=== PATIENT | female | born 1985 | race American Indian/Alaskan Native ===

== ENCOUNTER 2018-07-20 22:41 | Inpatient (IN) | payer SELFPAY ==
[2018-07-20] MEDS ORDERED: LIDOCAINE VISCOUS 2% ONE (23:42)
[2018-07-20] MEDS ORDERED: ALUM-MAG HYDROX-SIMETH 200-200-20MG/5ML ONE (23:42)
[2018-07-20] MEDS ORDERED: ALUM-MAG HYDROX-SIMETH 200-200-20MG/5ML PO ONE (23:44)
[2018-07-20] MEDS ORDERED: LIDOCAINE VISCOUS 2% PO ONE (23:44)
[2018-07-20] MEDS ORDERED: ZOFRAN ODT PO ONE (23:45)
[2018-07-21 00:30] LABS: Basophils # (Auto) 0.1 K/mm3 (0.0-0.1); Basophils % (Auto) 0.7 % (0.0-1.8); Eosinophils % (Auto) 0.2 % (0.0-4.3); Hematocrit 39.3 % (30.3-42.9); Hemoglobin 12.9 gm/dl (10.1-14.3); Lymphocytes # (Auto) 2.9 K/mm3 (1.2-5.4); Lymphocytes % (Auto) 32.1 % (13.4-35.0); Mean Corpuscular HGB Conc 33 % (30-34); Mean Corpuscular Volume 81 fl (79-97); Monocytes # (Auto) 0.6 K/mm3 (0.0-0.8); Monocytes % (Auto) 6.8 % (0.0-7.3); Platelet Count 293 K/mm3 (140-440); Red Blood Count 4.83 M/mm3 (3.65-5.03); Red Cell Distribution Width 15.6 % (13.2-15.2)
[2018-07-21] MEDS ORDERED: NORMODYNE IV ONE (00:32)
[2018-07-21] MEDS ORDERED: MORPHINE IV ONE (00:33)
--- NOTE | 2018-07-21 00:37 | Emergency Department Report ---
ED Abdominal Pain HPI - General Chief Complaint: Dyspnea/Respdistress Stated Complaint: HBP HARD TO TAKE DEEP BREATH Time Seen by Provider: 07/21/18 00:27 Source: patient Mode of arrival: Ambulatory Limitations: No Limitations - History of Present Illness Initial Comments: Mrs. Jefferson is a very pleasant 33 yo female with hx of HTN and severe obesity who presents with epigastric pain sudden onset while working on computer. Radiates to left chest. Ate mild chicken wings for dinner. No hx of heartburn or similar pain. Pain worse with inspiration. Take HCTZ 25 mg daily Hx of tubal ligation, does not take OCPs Complaint: abdominal pain -: Sudden, minutes(s) (30) Location: epigastric Radiation: chest Severity: moderate, severe Severity scale (0 -10): 7 Quality: cramping, sharp Consistency: constant Worsens With: other (breathing) Context: other (occurred suddenly while working at computer) - Related Data Home Medications Medication Instructions Recorded Confirmed Last Taken hydroCHLOROthiazide [HCTZ] 25 mg PO QDAY 07/21/18 07/21/18 Unknown Allergies Allergy/AdvReac Type Severity Reaction Status Date / Time amoxicillin Allergy Hives Verified 07/20/18 22:44 ED Review of Systems ROS: Stated complaint: HBP HARD TO TAKE DEEP BREATH Other details as noted in HPI Comment: All other systems reviewed and negative Constitutional: denies: fever, malaise Respiratory: denies: cough Cardiovascular: chest pain Gastrointestinal: abdominal pain ED Past Medical Hx - Past Medical History Previous Medical History?: Yes Hx Hypertension: Yes - Surgical History Past Surgical History?: Yes Additional Surgical History: , tubal ligation - Social History Smoking Status: Never Smoker Substance Use Type: None - Medications Home Medications: Home Medications Medication Instructions Recorded Confirmed Last Taken Type hydroCHLOROthiazide [HCTZ] 25 mg PO QDAY 07/21/18 07/21/18 Unknown History ED Physical Exam - General Limitations: No Limitations General appearance: alert, in no apparent distress, other (nontoxic but appears uncomfortable) - Head Head exam: Present: atraumatic, normocephalic - Eye Eye exam: Present: normal appearance - ENT ENT exam: Present: mucous membranes moist - Neck Neck exam: Present: normal inspection, full ROM. Absent: tenderness, meningismus - Respiratory Respiratory exam: Present: normal lung sounds bilaterally. Absent: respiratory distress, wheezes, rales, rhonchi - Cardiovascular Cardiovascular Exam: Present: regular rate, normal rhythm, normal heart sounds. Absent: systolic murmur, diastolic murmur, rubs, gallop - GI/Abdominal GI/Abdominal exam: Present: soft, normal bowel sounds. Absent: distended, tenderness, guarding, rebound - Extremities Exam Extremities exam: Present: normal inspection - Back Exam Back exam: Present: normal inspection - Neurological Exam Neurological exam: Present: alert, oriented X3 - Psychiatric Psychiatric exam: Present: normal affect, normal mood - Skin Skin exam: Present: warm, dry, intact, normal color. Absent: rash ED Course Vital Signs 07/20/18 07/20/18 07/21/18 22:50 23:32 00:15 Temperature 98.7 F 98.7 F 98.8 F Pulse Rate 93 H 93 H 88 Respiratory 18 18 14 Rate Blood Pressure 163/105 163/105 193/109 Blood Pressure 193/109 [Left] O2 Sat by Pulse 98 98 100 Oximetry 07/21/18 07/21/18 07/21/18 00:40 00:43 01:00 Temperature Pulse Rate 82 81 Respiratory 16 20 Rate Blood Pressure 159/100 152/79 Blood Pressure [Left] O2 Sat by Pulse 94 Oximetry 07/21/18 07/21/18 07/21/18 02:01 04:01 05:25 Temperature Pulse Rate 81 83 76 Respiratory 36 H 22 15 Rate Blood Pressure 166/84 169/88 Blood Pressure 132/82 [Left] O2 Sat by Pulse 94 98 100 Oximetry ED Medical Decision Making - Lab Data Result diagrams: 07/21/18 00:14 07/21/18 00:14 Laboratory Results - last 24 hr 07/21/18 07/21/18 07/21/18 00:14 00:14 00:14 WBC 9.0 RBC 4.83 Hgb 12.9 Hct 39.3 MCV 81 MCH 27 L MCHC 33 RDW 15.6 H Plt Count 293 Lymph % (Auto) 32.1 [place] % (Auto) 6.8 Eos % (Auto) 0.2 Baso % (Auto) 0.7 Lymph # 2.9 [place] # 0.6 Eos # 0.0 Baso # 0.1 Seg Neutrophils % 60.2 Seg Neutrophils # 5.4 Sodium 138 Potassium 3.8 Chloride 102.1 Carbon Dioxide 24 Anion Gap 16 BUN 10 Creatinine 0.7 Estimated GFR > 60 BUN/Creatinine Ratio 14 Glucose 118 H Calcium 9.2 Total Bilirubin 0.20 AST 14 ALT 11 Alkaline Phosphatase 80 Troponin T Total Protein 8.0 Albumin 3.7 L Albumin/Globulin Ratio 0.9 Lipase 31 HCG, Qual 07/21/18 07/21/18 00:14 00:14 WBC RBC Hgb Hct MCV MCH MCHC RDW Plt Count Lymph % (Auto) [place] % (Auto) Eos % (Auto) Baso % (Auto) Lymph # [place] # Eos # Baso # Seg Neutrophils % Seg Neutrophils # Sodium Potassium Chloride Carbon Dioxide Anion Gap BUN Creatinine Estimated GFR BUN/Creatinine Ratio Glucose Calcium Total Bilirubin AST ALT Alkaline Phosphatase Troponin T < 0.010 Total Protein Albumin Albumin/Globulin Ratio Lipase HCG, Qual Negative - EKG Data -: EKG Interpreted by Me EKG shows normal: sinus rhythm, axis, intervals, QRS complexes, ST-T waves Rate: normal - EKG Data Interpretation: normal EKG 07/21/18 01:06 NSR nl rate nl axis nl intervals no ST-T signs of ischemia no ST elevation rate 75 bpm Time obtained 57 - Radiology Data Radiology results: report reviewed CTA chest: NAP, no PNA no PE CT a/p: gallbladder wall thickening , pericholecystic fluid US: Findings of acute cholecystitis with large 1 cm gallstone with sludge layering and debris - Medical Decision Making Mrs. Jefferson is a very pleasant 33-year-old female with history of hypertension and severe obesity presents with gastric pain radiating to the chest. Differential diagnosis includes biliary colic, peptic ulcer disease, GERD. In the ED we have ruled out PE, ACS, pneumonia, pericarditis. CT abdomen and pelvis revealed gallbladder wall thickening and pericholecystic fluid. Without white count or Oliveros's sign, abdominal ultrasound was obtained. Abdominal ultrasound confirmed CT findings acute cholecystitis with gallbladde r wall thickening and Pericholecystic fluid. An additional finding of large 1 cm gallstone was also visualized on ultrasound. After treatment provided, patient is completely pain-free. She feels much better. She explained that her blood pressure is normally well controlled. However she did miss several doses of her medication over the last few days. General surgeon Dr. Martines recommended admission for definitive surgical intervention Hospitalist Dr. Sanderson accepted the patient to inpatient service Ciprofloxacin and levofloxacin antibiotics were ordered. Patient has amoxicillin allergy. Critical care attestation.: If time is entered above; I have spent that time in minutes in the direct care of this critically ill patient, excluding procedure time. ED Disposition Clinical Impression: Acute cholecystitis, Hypertensive urgency Disposition: 09 OP ADMIT IP TO THIS HOSP Is pt being admited?: Yes Does the pt Need Aspirin: No Condition: Stable
[2018-07-21 00:55] LABS: Alanine Aminotransferase 11 units/L (7-56); Albumin 3.7 g/dL (3.9-5); BUN/Creatinine Ratio 14; Blood Urea Nitrogen 10 mg/dL (7-17); Calcium 9.2 mg/dL (8.4-10.2); Hemolysis Index 2
[2018-07-21 01:57] LABS: Bilirubin,Urine NEG (Negative); Blood,Urine NEG (Negative); Color,Urine Straw (Yellow); Mucus,Urine FEW /HPF; Protein,Urine <15 mg/dL mg/dL (Negative); Urobilinogen,Urine < 2.0 mg/dL (<2.0); WBC,Urine < 1.0 /HPF (0.0-6.0)
--- NOTE | 2018-07-21 01:57 | Cat Scan Report ---
FINAL REPORT EXAM: CT ANGIO CHEST HISTORY: epigastric pain hypertension TECHNIQUE: High-resolution helical axial images were obtained of the chest during intravenous admini stration of iodinated contrast. Images are reconstructed in the sagittal and coronal planes. PRIORS: None. FINDINGS: There is no evidence of pulmonary embolism, the pulmonary arteries opacify normally. The heart and thoracic aorta appear normal. The lungs are clear. Images through the upper abdomen are unremarkable. The bones are unremarkable. IMPRESSION: No acute findings in the chest
--- NOTE | 2018-07-21 02:58 | Cat Scan Report ---
FINAL REPORT PROCEDURE: CT ABDOMEN PELVIS W CON TECHNIQUE: Computerized axial tomography of the abdomen and pelvis was performed after the IV inject ion of iodinated nonionic contrast. HISTORY: epigastric pain hypertension COMPARISON: No prior studies are available for comparison. FINDINGS: Visualized lower thorax: No significant abnormality. Liver: Normal size and attenuation. Spleen: Normal size and attenuation. Gallbladder and biliary system: There are no gallstones. The however, there appears to be gallbladder wall thickening and possible pericholecystic fluid which could indicate cholecystitis. The bile duct s are normal in caliber.. Pancreas: Normal. Adrenals: Normal. Kidneys: Normal. GI tract: There is no bowel obstruction, colitis or enteritis. The appendix is normal.. Lymph nodes and mesentery: Normal. Vasculature: Normal. Bladder: Normal. Reproductive organs: Uterus and ovaries are unremarkable.. Peritoneum: There is no ascites or free air, abscess or adenopathy.. Musculoskeletal structures: No significant abnormality. Other: None. IMPRESSION: There are no gallstones. The however, there appears to be gallbladder wall thickening and possible pe richolecystic fluid which could indicate cholecystitis. The bile ducts are normal in caliber.. There is no bowel obstruction, colitis or enteritis. The appendix is normal.. Uterus and ovaries are unremarkable.. There is no ascites or free air, abscess or adenopathy..
--- NOTE | 2018-07-21 05:42 | Ultrasound Report ---
FINAL REPORT EXAM: US ABDOMEN COMPLETE HISTORY: abd pain abnormal CT COMPARISONS: CT of the same date FINDINGS: Grayscale and color Doppler ultrasound evaluation of the abdomen Liver is normal in size and contour. Hepatic parenchymal echogenicity is within normal limits. No par enchymal lesion identified. No intra or extrahepatic biliary ductal dilatation. The common duct measu res approximately 3 millimeters in caliber. A gallstone measuring over 1 cm is present in the neck of the gallbladder. There is layering sludge/d ebris. Mild pericholecystic edema is suggested. Gallbladder wall measures approximately 3 millimeters in thickness. Imaged portion of the pancreatic head is sonographically unremarkable. The remainder of the pancreas is not well seen secondary to overlying bowel gas. The spleen is sonographically unremarkable. Imaged portions of the aorta and inferior vena cava are unremarkable. No abdominal ascites or free fluid in Alicia's pouch. The right kidney measures up to 11.7 cm and t he left kidney measures up to 13.1 cm in length. Kidneys are without hydronephrosis or echogenic shad owing foci to suggest nephrolithiasis. IMPRESSION: Findings are compatible with acute cholecystitis.
[2018-07-21] MEDS ORDERED: FLAGYL 500 MG/100 ML 500 MG/100 ML BAG IV ONE (05:58)
[2018-07-21] MEDS ORDERED: LEVAQUIN 500MG/100ML 500 MG/100 ML BAG IV ONE (05:58)
[2018-07-21] MEDS ORDERED: ZOFRAN IV PRN ×3 (06:22→06:58)
[2018-07-21] MEDS ORDERED: SODIUM CHLORIDE FLUSH SYRINGE 10 ML IV PRN (06:22)
[2018-07-21] MEDS ORDERED: TYLENOL PO PRN (06:22)
[2018-07-21] MEDS ORDERED: MORPHINE IV PRN ×2 (06:36→06:58)
[2018-07-21] MEDS ORDERED: REGLAN IV PRN (06:40)
--- NOTE | 2018-07-21 06:44 | History and Physical Report ---
<LUKASZ MEDINA - Last Filed: 07/21/18 06:45> History of Present Illness Date of examination: 07/21/18 Date of admission: 07/21/18 Chief complaint: abdominal pain History of present illness: Pt is a 33 yo female with PMHhx of HTN and morbid obesity who presents to the ER with c/o epigastric pain started today. Pt states that she had been having RUQ abdominal pain on and off for days, she usually takes OCT antacid with relief. Pt states that the pain started sudden today, she took antacid and other remedies without any relief. Pt states that the pain is located in RUQ, remains persistent with radiation to the left side chest. Pt c/o RUQ pain, denies nausea, denies vomiting, denies fever, denies chills, denies diarrhea. She rep orts eating mild chicken wings for dinner. In the ER, she had a CT scan that shows acute cholecyscitis, surgery is consulted abd pt is admitted for possible cholecysectomy. Past History Past Medical History: hypertension Past Surgical History: , Other (tubal ligation) Social history: lives with family Family history: no significant family history Medications and Allergies Allergies Allergy/AdvReac Type Severity Reaction Status Date / Time amoxicillin Allergy Hives Verified 07/20/18 22:44 Home Medications Medication Instructions Recorded Confirmed Last Taken Type RX: hydroCHLOROthiazide [HCTZ] 25 mg PO QDAY #30 tablet 07/22/18 Unknown Rx RX: oxyCODONE /ACETAMINOPHEN 2 tab PO Q4H PRN #12 tablet 07/22/18 Unknown Rx [Percocet 5/325 mg] Active Meds: Active Medications Acetaminophen (Tylenol) 650 mg PO Q4H PRN PRN Reason: Pain MILD(1-3)/Fever >100.5/AMADO Levofloxacin/Dextrose (Levaquin 500mg/100ml) 500 mg in 100 mls @ 100 mls/hr IV ONCE ONE Stop: 07/21/18 06:57 Last Admin: 07/21/18 06:34 Dose: 100 mls/hr Documented by: Dextrose/Sodium Chloride (D5/0.45ns) 1,000 mls @ 100 mls/hr IV DIRECT LES Levofloxacin/Dextrose (Levaquin 500mg/100ml) 500 mg in 100 mls @ 100 mls/hr IV Q24HR LES; Protocol Metoclopramide HCl (Reglan) 10 mg IV Q6H PRN PRN Reason: Nausea And Vomiting Morphine Sulfate (Morphine) 4 mg IV Q4H PRN PRN Reason: Pain, Moderate (4-6) Ondansetron HCl (Zofran) 4 mg IV Q8H PRN PRN Reason: Nausea And Vomiting Ondansetron HCl (Zofran) 4 mg IV Q8H PRN PRN Reason: Nausea And Vomiting Pantoprazole Sodium (Protonix) 40 mg IV QDAY ELS Sodium Chloride (Sodium Chloride Flush Syringe 10 Ml) 10 ml IV BID LES Sodium Chloride (Sodium Chloride Flush Syringe 10 Ml) 10 ml IV PRN PRN PRN Reason: LINE FLUSH Sodium Chloride (Sodium Chloride Flush Syringe 10 Ml) 10 ml IV BID LES Review of Systems Gastrointestinal: abdominal pain (RUQ) Exam - Constitutional Vitals: Temp Pulse Resp BP Pulse Ox 98.8 F 75 17 135/84 98 07/21/18 00:15 07/21/18 06:00 07/21/18 06:00 07/21/18 06:00 07/21/18 06:00 General appearance: Present: no acute distress - EENT Eyes: Present: PERRL, EOM intact ENT: hearing intact - Respiratory Respiratory effort: normal - Cardiovascular Rhythm: regular - Extremities Extremities: no ischemia, No edema Peripheral Pulses: within normal limits - Abdominal General gastrointestinal: Present: tender Female genitourinary: Present: deferred - Rectal Rectal Exam: deferred - Musculoskeletal Musculoskeletal: strength equal bilaterally - Psychiatric Psychiatric: cooperative - Neurologic Neurologic: moves all extremities Results - Labs CBC & Chem 7: 07/21/18 00:14 07/21/18 00:14 Labs: Laboratory Last Values WBC 9.0 K/mm3 (4.5-11.0) 07/21/18 00:14 RBC 4.83 M/mm3 (3.65-5.03) 07/21/18 00:14 Hgb 12.9 gm/dl (10.1-14.3) 07/21/18 00:14 Hct 39.3 % (30.3-42.9) 07/21/18 00:14 MCV 81 fl (79-97) 07/21/18 00:14 MCH 27 pg (28-32) L 07/21/18 00:14 MCHC 33 % (30-34) 07/21/18 00:14 RDW 15.6 % (13.2-15.2) H 07/21/18 00:14 Plt Count 293 K/mm3 (140-440) 07/21/18 00:14 Lymph % (Auto) 32.1 % (13.4-35.0) 07/21/18 00:14 [place] % (Auto) 6.8 % (0.0-7.3) 07/21/18 00:14 Eos % (Auto) 0.2 % (0.0-4.3) 07/21/18 00:14 Baso % (Auto) 0.7 % (0.0-1.8) 07/21/18 00:14 Lymph # 2.9 K/mm3 (1.2-5.4) 07/21/18 00:14 [place] # 0.6 K/mm3 (0.0-0.8) 07/21/18 00:14 Eos # 0.0 K/mm3 (0.0-0.4) 07/21/18 00:14 Baso # 0.1 K/mm3 (0.0-0.1) 07/21/18 00:14 Seg Neutrophils % 60.2 % (40.0-70.0) 07/21/18 00:14 Seg Neutrophils # 5.4 K/mm3 (1.8-7.7) 07/21/18 00:14 Sodium 138 mmol/L (137-145) 07/21/18 00:14 Potassium 3.8 mmol/L (3.6-5.0) 07/21/18 00:14 Chloride 102.1 mmol/L (98-107) 07/21/18 00:14 Carbon Dioxide 24 mmol/L (22-30) 07/21/18 00:14 Anion Gap 16 mmol/L 07/21/18 00:14 BUN 10 mg/dL (7-17) 07/21/18 00:14 Creatinine 0.7 mg/dL (0.7-1.2) 07/21/18 00:14 Estimated GFR > 60 ml/min 07/21/18 00:14 BUN/Creatinine Ratio 14 % 07/21/18 00:14 Glucose 118 mg/dL (65-100) H 07/21/18 00:14 Calcium 9.2 mg/dL (8.4-10.2) 07/21/18 00:14 Total Bilirubin 0.20 mg/dL (0.1-1.2) 07/21/18 00:14 AST 14 units/L (5-40) 07/21/18 00:14 ALT 11 units/L (7-56) 07/21/18 00:14 Alkaline Phosphatase 80 units/L (35-129) 07/21/18 00:14 Troponin T < 0.010 ng/mL (0.00-0.029) 07/21/18 00:14 Total Protein 8.0 g/dL (6.3-8.2) 07/21/18 00:14 Albumin 3.7 g/dL (3.9-5) L 07/21/18 00:14 Albumin/Globulin Ratio 0.9 % 07/21/18 00:14 Lipase 31 units/L (13-60) 07/21/18 00:14 HCG, Qual Negative (Negative) 07/21/18 00:14 Urine Color Straw (Yellow) 07/21/18 01:46 Urine Turbidity Clear (Clear) 07/21/18 01:46 Urine pH 7.0 (5.0-7.0) 07/21/18 01:46 Ur Specific [place] 1.056 (1.003-1.030) H 07/21/18 01:46 Urine Protein <15 mg/dl mg/dL (Negative) 07/21/18 01:46 Urine Glucose (UA) Neg mg/dL (Negative) 07/21/18 01:46 Urine Ketones Neg mg/dL (Negative) 07/21/18 01:46 Urine Blood Neg (Negative) 07/21/18 01:46 Urine Nitrite Neg (Negative) 07/21/18 01:46 Urine Bilirubin Neg (Negative) 07/21/18 01:46 Urine Urobilinogen < 2.0 mg/dL (<2.0) 07/21/18 01:46 Ur Leukocyte Esterase Neg (Negative) 07/21/18 01:46 Urine WBC (Auto) < 1.0 /HPF (0.0-6.0) 07/21/18 01:46 Urine RBC (Auto) 2.0 /HPF (0.0-6.0) 07/21/18 01:46 U Epithel Cells (Auto) 3.0 /HPF (0-13.0) 07/21/18 01:46 Urine Mucus Few /HPF 07/21/18 01:46 Assessment and Plan Assessment and plan: 1. Acute cholycystitis 2. Hypertension 3. Morbid obesity Plan: Admitted to med/surge Consult surgery for acute cholecystitis Keep NPO for possible surgery today Pain control PRN with morphine for abdominal pain Protonix 40 IV Qday IVF with D51/2 at 100 ml DVT prophylaxis with SQ Plan of care d/w pt, voiced understanding Pt's condition and plan of care d/w Dr Sanderson Advance Directives: Yes VTE prophylaxis?: Mechanical Plan of care discussed with patient/family: Yes <MERNA SANDERSON - Last Filed: 08/04/18 05:45> History of Present Illness Date of admission: 07/21/18 06:22 Exam - Constitutional Vitals: Temp Pulse Resp BP Pulse Ox 99.2 F 90 16 138/79 94 07/22/18 13:19 07/22/18 13:19 07/22/18 13:19 07/22/18 13:19 07/22/18 13:19 Results - Labs CBC & Chem 7: 07/22/18 05:27 07/21/18 00:14 Labs: Laboratory Last Values WBC 10.6 K/mm3 (4.5-11.0) 07/22/18 05:27 RBC 4.47 M/mm3 (3.65-5.03) 07/22/18 05:27 Hgb 11.8 gm/dl (10.1-14.3) 07/22/18 05:27 Hct 36.2 % (30.3-42.9) 07/22/18 05:27 MCV 81 fl (79-97) 07/22/18 05:27 MCH 27 pg (28-32) L 07/22/18 05:27 MCHC 33 % (30-34) 07/22/18 05:27 RDW 15.5 % (13.2-15.2) H 07/22/18 05:27 Plt Count 264 K/mm3 (140-440) 07/22/18 05:27 Lymph % (Auto) 24.7 % (13.4-35.0) 07/22/18 05:27 [place] % (Auto) 5.7 % (0.0-7.3) 07/22/18 05:27 Eos % (Auto) 0.0 % (0.0-4.3) 07/22/18 05:27 Baso % (Auto) 0.3 % (0.0-1.8) 07/22/18 05:27 Lymph # 2.6 K/mm3 (1.2-5.4) 07/22/18 05:27 [place] # 0.6 K/mm3 (0.0-0.8) 07/22/18 05:27 Eos # 0.0 K/mm3 (0.0-0.4) 07/22/18 05:27 Baso # 0.0 K/mm3 (0.0-0.1) 07/22/18 05:27 Seg Neutrophils % 69.3 % (40.0-70.0) 07/22/18 05:27 Seg Neutrophils # 7.4 K/mm3 (1.8-7.7) 07/22/18 05:27 PT 14.2 Sec. (12.2-14.9) 07/22/18 05:26 INR 1.06 (0.87-1.13) 07/22/18 05:26 Sodium 138 mmol/L (137-145) 07/21/18 00:14 Potassium 3.8 mmol/L (3.6-5.0) 07/21/18 00:14 Chloride 102.1 mmol/L (98-107) 07/21/18 00:14 Carbon Dioxide 24 mmol/L (22-30) 07/21/18 00:14 Anion Gap 16 mmol/L 07/21/18 00:14 BUN 10 mg/dL (7-17) 07/21/18 00:14 Creatinine 0.7 mg/dL (0.7-1.2) 07/21/18 00:14 Estimated GFR > 60 ml/min 07/21/18 00:14 BUN/Creatinine Ratio 14 % 07/21/18 00:14 Glucose 118 mg/dL (65-100) H 07/21/18 00:14 Calcium 9.2 mg/dL (8.4-10.2) 07/21/18 00:14 Total Bilirubin 0.20 mg/dL (0.1-1.2) 07/21/18 00:14 AST 14 units/L (5-40) 07/21/18 00:14 ALT 11 units/L (7-56) 07/21/18 00:14 Alkaline Phosphatase 80 units/L (35-129) 07/21/18 00:14 Troponin T < 0.010 ng/mL (0.00-0.029) 07/21/18 00:14 Total Protein 8.0 g/dL (6.3-8.2) 07/21/18 00:14 Albumin 3.7 g/dL (3.9-5) L 07/21/18 00:14 Albumin/Globulin Ratio 0.9 % 07/21/18 00:14 Lipase 31 units/L (13-60) 07/21/18 00:14 HCG, Qual Negative (Negative) 07/21/18 00:14 Urine Color Straw (Yellow) 07/21/18 01:46 Urine Turbidity Clear (Clear) 07/21/18 01:46 Urine pH 7.0 (5.0-7.0) 07/21/18 01:46 Ur Specific [place] 1.056 (1.003-1.030) H 07/21/18 01:46 Urine Protein <15 mg/dl mg/dL (Negative) 07/21/18 01:46 Urine Glucose (UA) Neg mg/dL (Negative) 07/21/18 01:46 Urine Ketones Neg mg/dL (Negative) 07/21/18 01:46 Urine Blood Neg (Negative) 07/21/18 01:46 Urine Nitrite Neg (Negative) 07/21/18 01:46 Urine Bilirubin Neg (Negative) 07/21/18 01:46 Urine Urobilinogen < 2.0 mg/dL (<2.0) 07/21/18 01:46 Ur Leukocyte Esterase Neg (Negative) 07/21/18 01:46 Urine WBC (Auto) < 1.0 /HPF (0.0-6.0) 07/21/18 01:46 Urine RBC (Auto) 2.0 /HPF (0.0-6.0) 07/21/18 01:46 U Epithel Cells (Auto) 3.0 /HPF (0-13.0) 07/21/18 01:46 Urine Mucus Few /HPF 07/21/18 01:46 Assessment and Plan Assessment and plan: Patient seen and examined with nurse practitioner, agree with plan as stated above
--- NOTE | 2018-07-21 06:55 | Event Note ---
Patient seen and examined withpractitioner. This is a 33-year-old woman with a history of hypertension, obesity class emergency room with complaints of epigastric pain associated with nausea vomiting, symptoms started after eating. Ultrasound shows acute cholecystitis, placed on bowel rest and surgery is consulted to see the patient.
[2018-07-21] MEDS ORDERED: SODIUM CHLORIDE FLUSH SYRINGE 10 ML IV SCH (10:00)
[2018-07-21] MEDS ORDERED: PROTONIX IV SCH (10:00)
--- NOTE | 2018-07-21 10:17 | Progress Note ---
Assessment and Plan Assessment and plan: Acute cholecystitis. Surgery consult. CT scan reveals no gallstones but gallbladder wall thickening and possible pericholecystic fluid indicative of cholecystitis. IV antibiotics, Keep nothing by mouth and continue pain control. Hypertension. Resume antihypertensive medications. Morbid obesity. Abdominal pain. As above. Total time 25 minutes with greater than 50% spent with coordination of care and counseling. History Interval history: No new issues this admission. Hospitalist Physical - Constitutional Vitals: Temp Pulse Resp BP Pulse Ox 98.1 F 72 16 131/72 98 07/21/18 09:35 07/21/18 09:35 07/21/18 09:35 07/21/18 09:35 07/21/18 09:35 General appearance: Present: no acute distress - EENT Eyes: Present: PERRL, EOM intact ENT: hearing intact, clear oral mucosa, dentition normal - Neck Neck: Present: supple, normal ROM - Respiratory Respiratory effort: normal Respiratory: bilateral: CTA - Cardiovascular Rhythm: regular Heart Sounds: Present: S1 & S2. Absent: gallop, rub - Extremities Extremities: no ischemia, No edema, Full ROM - Abdominal General gastrointestinal: soft, tender, non-distended, normal bowel sounds Localized gastrointestinal: tender: RUQ - Integumentary Integumentary: Present: clear, warm, dry - Neurologic Neurologic: CNII-XII intact, moves all extremities Results - Labs CBC & Chem 7: 07/21/18 00:14 07/21/18 00:14 Labs: Laboratory Last Values WBC 9.0 K/mm3 (4.5-11.0) 07/21/18 00:14 RBC 4.83 M/mm3 (3.65-5.03) 07/21/18 00:14 Hgb 12.9 gm/dl (10.1-14.3) 07/21/18 00:14 Hct 39.3 % (30.3-42.9) 07/21/18 00:14 MCV 81 fl (79-97) 07/21/18 00:14 MCH 27 pg (28-32) L 07/21/18 00:14 MCHC 33 % (30-34) 07/21/18 00:14 RDW 15.6 % (13.2-15.2) H 07/21/18 00:14 Plt Count 293 K/mm3 (140-440) 07/21/18 00:14 Lymph % (Auto) 32.1 % (13.4-35.0) 07/21/18 00:14 [place] % (Auto) 6.8 % (0.0-7.3) 07/21/18 00:14 Eos % (Auto) 0.2 % (0.0-4.3) 07/21/18 00:14 Baso % (Auto) 0.7 % (0.0-1.8) 07/21/18 00:14 Lymph # 2.9 K/mm3 (1.2-5.4) 07/21/18 00:14 [place] # 0.6 K/mm3 (0.0-0.8) 07/21/18 00:14 Eos # 0.0 K/mm3 (0.0-0.4) 07/21/18 00:14 Baso # 0.1 K/mm3 (0.0-0.1) 07/21/18 00:14 Seg Neutrophils % 60.2 % (40.0-70.0) 07/21/18 00:14 Seg Neutrophils # 5.4 K/mm3 (1.8-7.7) 07/21/18 00:14 Sodium 138 mmol/L (137-145) 07/21/18 00:14 Potassium 3.8 mmol/L (3.6-5.0) 07/21/18 00:14 Chloride 102.1 mmol/L (98-107) 07/21/18 00:14 Carbon Dioxide 24 mmol/L (22-30) 07/21/18 00:14 Anion Gap 16 mmol/L 07/21/18 00:14 BUN 10 mg/dL (7-17) 07/21/18 00:14 Creatinine 0.7 mg/dL (0.7-1.2) 07/21/18 00:14 Estimated GFR > 60 ml/min 07/21/18 00:14 BUN/Creatinine Ratio 14 % 07/21/18 00:14 Glucose 118 mg/dL (65-100) H 07/21/18 00:14 Calcium 9.2 mg/dL (8.4-10.2) 07/21/18 00:14 Total Bilirubin 0.20 mg/dL (0.1-1.2) 07/21/18 00:14 AST 14 units/L (5-40) 07/21/18 00:14 ALT 11 units/L (7-56) 07/21/18 00:14 Alkaline Phosphatase 80 units/L (35-129) 07/21/18 00:14 Troponin T < 0.010 ng/mL (0.00-0.029) 07/21/18 00:14 Total Protein 8.0 g/dL (6.3-8.2) 07/21/18 00:14 Albumin 3.7 g/dL (3.9-5) L 07/21/18 00:14 Albumin/Globulin Ratio 0.9 % 07/21/18 00:14 Lipase 31 units/L (13-60) 07/21/18 00:14 HCG, Qual Negative (Negative) 07/21/18 00:14 Urine Color Straw (Yellow) 07/21/18 01:46 Urine Turbidity Clear (Clear) 07/21/18 01:46 Urine pH 7.0 (5.0-7.0) 07/21/18 01:46 Ur Specific [place] 1.056 (1.003-1.030) H 07/21/18 01:46 Urine Protein <15 mg/dl mg/dL (Negative) 07/21/18 01:46 Urine Glucose (UA) Neg mg/dL (Negative) 07/21/18 01:46 Urine Ketones Neg mg/dL (Negative) 07/21/18 01:46 Urine Blood Neg (Negative) 07/21/18 01:46 Urine Nitrite Neg (Negative) 07/21/18 01:46 Urine Bilirubin Neg (Negative) 07/21/18 01:46 Urine Urobilinogen < 2.0 mg/dL (<2.0) 07/21/18 01:46 Ur Leukocyte Esterase Neg (Negative) 07/21/18 01:46 Urine WBC (Auto) < 1.0 /HPF (0.0-6.0) 07/21/18 01:46 Urine RBC (Auto) 2.0 /HPF (0.0-6.0) 07/21/18 01:46 U Epithel Cells (Auto) 3.0 /HPF (0-13.0) 07/21/18 01:46 Urine Mucus Few /HPF 07/21/18 01:46
[2018-07-21] MEDS: SODIUM CHLORIDE FLUSH SYRINGE 10 ML IV SCH ×2 (10:35→22:02)
[2018-07-21] MEDS: D5/0.45NS 1,000 ML IV SCH (10:35)
--- NOTE | 2018-07-21 13:42 | Consultation ---
History of Present Illness Consult date: 07/21/18 Reason for consult: gallstones Chief complaint: abdominal pain - History of present illness History of present illness: 33 yo F with hx of obesity, HTN presented to ER with c/o sharp, intermittent, epigastric abdominal pain for 1 day. The pain is not radiating. She has had pain like this in the past. She ate chicken wings last night and pain started shortly therafter. She states the prior episodes of pain were related to fatty/fried foods but she ignored it. This time, the pain was so severe that she came to the ER. She did have nausea/vomiting (nb/nb). No f/c. No CP, SOB, c/d. Past History Past Medical History: hypertension Past Surgical History: , Other (tubal ligation) Social history: lives with family Family history: no significant family history Medications and Allergies Allergies Allergy/AdvReac Type Severity Reaction Status Date / Time amoxicillin Allergy Hives Verified 07/20/18 22:44 Home Medications Medication Instructions Recorded Confirmed Last Taken Type hydroCHLOROthiazide [HCTZ] 25 mg PO QDAY 07/21/18 07/21/18 Unknown History Active Meds: Active Medications Acetaminophen (Tylenol) 650 mg PO Q4H PRN PRN Reason: Pain MILD(1-3)/Fever >100.5/AMADO Dextrose/Sodium Chloride (D5/0.45ns) 1,000 mls @ 100 mls/hr IV DIRECT [facility] Last Admin: 07/21/18 10:35 Dose: 100 mls/hr Documented by: Levofloxacin/Dextrose (Levaquin 500mg/100ml) 500 mg in 100 mls @ 100 mls/hr IV Q24H [facility]; Protocol Metoclopramide HCl (Reglan) 10 mg IV Q6H PRN PRN Reason: Nausea And Vomiting Morphine Sulfate (Morphine) 2 mg IV Q4H PRN PRN Reason: Pain, Moderate (4-6) Ondansetron HCl (Zofran) 4 mg IV Q4H PRN PRN Reason: Nausea And Vomiting Pantoprazole Sodium (Protonix) 40 mg IV QDAY [facility] Last Admin: 07/21/18 10:35 Dose: 40 mg Documented by: Sodium Chloride (Sodium Chloride Flush Syringe 10 Ml) 10 ml IV BID [facility] Last Admin: 07/21/18 10:35 Dose: 10 ml Documented by: Sodium Chloride (Sodium Chloride Flush Syringe 10 Ml) 10 ml IV PRN PRN PRN Reason: LINE FLUSH Review of Systems All systems: negative (10 pt ROS performed and negative except for that listed in HPI) Exam Vital Signs Temp Pulse Resp BP Pulse Ox 98.7 F 93 H 18 163/105 98 07/20/18 22:50 07/20/18 22:50 07/20/18 22:50 07/20/18 22:50 07/20/18 22:50 Narrative exam: Gen: AAOx3. NAD ENT: no scleral icterus or conjunctival pallor CV: s1, S2+ resp: even and unlabored Abd: soft, ND, mild epigastric TTP on deep palpation. no r/r/g Ext: no c/c/e Results - Labs 07/21/18 00:14 07/21/18 00:14 Abnormal lab results 07/21/18 07/21/18 07/21/18 Range/Units 00:14 00:14 01:46 MCH 27 L (28-32) pg RDW 15.6 H (13.2-15.2) % Glucose 118 H (65-100) mg/dL Albumin 3.7 L (3.9-5) g/dL Ur Specific [place] 1.056 H (1.003-1.030) Diabetes panel 07/21/18 Range/Units 00:14 Sodium 138 (137-145) mmol/L Potassium 3.8 (3.6-5.0) mmol/L Chloride 102.1 (98-107) mmol/L Carbon Dioxide 24 (22-30) mmol/L BUN 10 (7-17) mg/dL Creatinine 0.7 (0.7-1.2) mg/dL Glucose 118 H (65-100) mg/dL Calcium 9.2 (8.4-10.2) mg/dL AST 14 (5-40) units/L ALT 11 (7-56) units/L Alkaline Phosphatase 80 (35-129) units/L Total Protein 8.0 (6.3-8.2) g/dL Albumin 3.7 L (3.9-5) g/dL Calcium panel 07/21/18 Range/Units 00:14 Calcium 9.2 (8.4-10.2) mg/dL Albumin 3.7 L (3.9-5) g/dL Pituitary panel 07/21/18 Range/Units 00:14 Sodium 138 (137-145) mmol/L Potassium 3.8 (3.6-5.0) mmol/L Chloride 102.1 (98-107) mmol/L Carbon Dioxide 24 (22-30) mmol/L BUN 10 (7-17) mg/dL Creatinine 0.7 (0.7-1.2) mg/dL Glucose 118 H (65-100) mg/dL Calcium 9.2 (8.4-10.2) mg/dL Adrenal panel 07/21/18 Range/Units 00:14 Sodium 138 (137-145) mmol/L Potassium 3.8 (3.6-5.0) mmol/L Chloride 102.1 (98-107) mmol/L Carbon Dioxide 24 (22-30) mmol/L BUN 10 (7-17) mg/dL Creatinine 0.7 (0.7-1.2) mg/dL Glucose 118 H (65-100) mg/dL Calcium 9.2 (8.4-10.2) mg/dL Total Bilirubin 0.20 (0.1-1.2) mg/dL AST 14 (5-40) units/L ALT 11 (7-56) units/L Alkaline Phosphatase 80 (35-129) units/L Total Protein 8.0 (6.3-8.2) g/dL Albumin 3.7 L (3.9-5) g/dL - Imaging CT scan - abdomen: report reviewed, image reviewed CT scan - pelvis: report reviewed, image reviewed US - abdomen: report reviewed, image reviewed Assessment and Plan 33 yo F with acute cholecystitis Plan; 1. NPO 2. IVF 3. IV abx 4. prn pain and nausea control 5. DVT ppx 6. plan for OR today for cholecystectomy. I discussed all risks, benefits and alternatives to surgery with the patient and consent obtained. All questions answered. Family present in room Thank you, please call with questions.
[2018-07-21] MEDS ORDERED: LACTATED RINGERS 1,000 ML IV SCH (15:00)
[2018-07-21] MEDS ORDERED: VERSED IV NR (15:00)
--- NOTE | 2018-07-21 16:04 | Anesthesia Consultation ---
Anesthesia Consult and Med Hx Date of service: 07/21/18 - Airway Anesthetic Teeth Evaluation: Good ROM Head & Neck: Adequate Mental/Hyoid Distance: Adequate Mallampati Class: Class I Intubation Access Assessment: Possibly Difficult - Pulmonary Exam CTA: Yes - Cardiac Exam Cardiac Exam: RRR - Pre-Operative Health Status ASA Pre-Surgery Classification: ASA3 Proposed Anesthetic Plan: General - Pulmonary Hx Smoking: No Hx Asthma: No Hx Respiratory Symptoms: No - Cardiovascular System Hx Hypertension: Yes Hx Heart Attack/AMI: No Hx Percutaneous Transluminal Coronary Angioplasty (PTCA): No Hx Cardia Arrhythmia: No - Central Nervous System Hx Seizures: No CVA: No - Endocrine Hx Renal Disease: No Hx Liver Disease: No Hx Insulin Dependent Diabetes: No Hx Non-Insulin Dependent Diabetes: No Hx Thyroid Disease: No - Other Systems Hx Obesity: Yes - Additional Comments Anesthesia Medical History Comments: No hx anesthetic complications. Denies recent nausea/vomiting.
--- NOTE | 2018-07-21 16:04 | Anesthesia Day of Surgery ---
Anesthesia Day of Surgery - Day of Surgery Patient Examined: Yes Patient H&P Reviewed: Yes Patient is NPO: Yes
[2018-07-21] MEDS ORDERED: ZEMURON IV ONE (16:56)
[2018-07-21] MEDS ORDERED: BLOXIVERZ ONE (16:56)
[2018-07-21] MEDS ORDERED: ROBINUL ONE ×2 (16:56→20:25)
[2018-07-21] MEDS ORDERED: DIPRIVAN 10 MG/ML IV ONE (16:56)
[2018-07-21] MEDS ORDERED: DECADRON ONE (16:56)
[2018-07-21] MEDS ORDERED: SUBLIMAZE ONE (16:56)
[2018-07-21] MEDS ORDERED: ZOFRAN ONE (16:56)
[2018-07-21] MEDS ORDERED: QUELICIN ONE (16:56)
[2018-07-21] MEDS ORDERED: MARCAINE 0.5% INFILTRATI ONE ×2 (18:27→18:40)
[2018-07-21] MEDS ORDERED: TORADOL ONE (20:25)
[2018-07-21] MEDS ORDERED: PERCOCET 5/325 PO PRN (20:36)
--- NOTE | 2018-07-21 20:36 | Post Operative Note ---
Date of procedure: 07/21/18 Pre-op diagnosis: acute cholecystitis Post-op diagnosis: same Findings: edematous gallbladder with pericholecystic fluid, large stone at the neck of the gallbladder Procedure: robotic assisted cholecystectomy Anesthesia: SAURABHA, local Surgeon: VINNY RECINOS Estimated blood loss: minimal Pathology: list (gallbladder) Specimen disposition: to lab Condition: stable Disposition: PACU
[2018-07-21] MEDS ORDERED: DILAUDID IV PRN (20:57)
[2018-07-21] MEDS ORDERED: DILAUDID ONE (20:59)
--- NOTE | 2018-07-21 21:12 | Post Anesthesia Evaluation ---
- Post Anesthesia Evaluation Patient Participated: Yes Airway Patent: Yes Stable Respiratory Function: Yes Nausea/Vomiting: No Temp > 96.8F: Yes Pain Manageable: Yes Adequeate Hydration: Yes Anesthesia Complications: No
[2018-07-22 05:57] LABS: Basophils % (Auto) 0.3 % (0.0-1.8); Hematocrit 36.2 % (30.3-42.9); Hemoglobin 11.8 gm/dl (10.1-14.3); Lymphocytes # (Auto) 2.6 K/mm3 (1.2-5.4); Lymphocytes % (Auto) 24.7 % (13.4-35.0); Mean Corpuscular HGB Conc 33 % (30-34); Mean Corpuscular Volume 81 fl (79-97); Monocytes # (Auto) 0.6 K/mm3 (0.0-0.8); Monocytes % (Auto) 5.7 % (0.0-7.3); Platelet Count 264 K/mm3 (140-440); Red Blood Count 4.47 M/mm3 (3.65-5.03); Red Cell Distribution Width 15.5 % (13.2-15.2)
[2018-07-22] MEDS ORDERED: LEVAQUIN 500MG/100ML 500 MG/100 ML BAG IV SCH (06:00)
[2018-07-22] MEDS ORDERED: TORADOL IV SCH (06:00)
[2018-07-22 06:04] LABS: INR 1.06 (0.87-1.13)
[2018-07-22] MEDS: D5/0.45NS 1,000 ML IV SCH (08:52)
--- NOTE | 2018-07-22 09:53 | Discharge Summary ---
Providers - Providers Date of Admission: 07/21/18 06:22 Date of discharge: 07/22/18 Attending physician: CHRIS GARCIA 07/21/18 05:59 Consult to Physician [CONS] Stat Comment: Dr. Love spoke with Dr. Recinos @ [phone] Consulting Provider: VINNY RECINOS Physician Instructions: Reason For Exam: acute cholecystitis Primary care physician: MIREYA DEVRIES Hospitalization Reason for admission: cholecystitis Condition: Stable Hospital course: 33 yo F with hx of obesity, HTN presented to ER with c/o sharp, intermittent, epigastric abdominal pain for 1 day. The patient was evaluated and found to have on CT scan no gallstones but gallbladder wall thickening and possible pericholecystic fluid indicative of cholecystitis. The patient was admitted with diagnosis of acute cholecystitis. The patient underwent robotic assisted cholecystectomy with general surgery. Findings included edematous gallbladder with pericholecystic fluid, large stone at the neck of the gallbladder. The patient tolerated procedure well and diet was later advanced postprocedure without complications. The patient is felt to have received maximum hospital benefit. Therefore, patient will be discharged home. Disposition: DC-01 TO HOME OR SELFCARE Time spent for discharge: 34 Core Measure Documentation - Palliative Care Palliative Care/ Comfort Measures: Not Applicable - Core Measures Any of the following diagnoses?: none Exam - Constitutional Vitals: Temp Pulse Resp BP Pulse Ox 98.8 F 83 24 143/77 92 07/21/18 21:43 07/21/18 21:43 07/21/18 21:43 07/21/18 21:43 07/21/18 21:43 General appearance: Present: no acute distress, well-nourished - EENT Eyes: Present: PERRL ENT: hearing intact, clear oral mucosa - Neck Neck: Present: supple, normal ROM - Respiratory Respiratory effort: normal Respiratory: bilateral: CTA - Cardiovascular Heart Sounds: Present: S1 & S2. Absent: rub, click - Extremities Extremities: pulses symmetrical, No edema Peripheral Pulses: within normal limits - Abdominal General gastrointestinal: Present: soft, non-tender, non-distended, normal bowel sounds Female genitourinary: Present: normal - Integumentary Integumentary: Present: clear, warm, dry - Musculoskeletal Musculoskeletal: gait normal, strength equal bilaterally - Psychiatric Psychiatric: appropriate mood/affect, intact judgment & insight - Neurologic Neurologic: CNII-XII intact, moves all extremities Plan Activity: no restrictions Weight Bearing Status: Weight Bear as Tolerated Diet: regular Wound: per your surgeon's advice Follow up with: MIREYA DEVRIES MD [Primary Care Provider] - 7 Days VINNY RECINOS DO [Staff Physician] - 7 Days Prescriptions: hydroCHLOROthiazide [HCTZ] 25 mg PO QDAY #30 tablet oxyCODONE /ACETAMINOPHEN [Percocet 5/325 mg] 2 tab PO Q4H PRN #12 tablet PRN Reason: Pain, Moderate (4-6)
[2018-07-22] MEDS: SODIUM CHLORIDE FLUSH SYRINGE 10 ML IV SCH (12:01)
--- NOTE | 2018-07-22 12:52 | Progress Note ---
Assessment and Plan 33 yo F s/p robotic assisted cholecystectomy, POD 1 1. reg diet 2. dc IVF 3. prn PO pain control 4. may dc from surgery standpoint. Pt instructed to follow up in office in 2 weeks. Printed DC instructions left on chart. Thank you, please call with questions. Subjective Date of service: 07/22/18 Narrative: Pt seen and examined. Feels well. No pain. No f/c. Tolerating a diet. No n/v Objective Vital Signs - 12hr 07/22/18 10:00 Pulse Rate [ 87 Apical] Respiratory 18 Rate - General physical appearance Narrative Exam: Gen; AAOx3. NAD CV: s1, s2+ resp; even and unlabored Abd: soft, NT Ext: no c/c/e - Labs 07/22/18 05:27 07/21/18 00:14
[2018-07-22 13:22] VITALS: BP 138/79
--- NOTE | 2018-07-22 14:06 | Operative Report ---
PREOPERATIVE DIAGNOSIS: Acute cholecystitis. POSTOPERATIVE DIAGNOSIS: Acute cholecystitis. FINDINGS: Edematous gallbladder with pericholecystic fluid, large stone at the neck of the gallbladder. PROCEDURE: Robotic-assisted cholecystectomy. ANESTHESIA: General endotracheal anesthesia, local. SURGEON: Katt Martines DO ESTIMATED BLOOD LOSS: Minimal. PATHOLOGY: Gallbladder. SPECIMEN DISPOSITION: To lab. CONDITION OF PATIENT: Stable. DISPOSITION: The patient to PACU. HISTORY OF PRESENT ILLNESS AND INDICATION: The patient is a 33-year-old female who presented to the Emergency Room with complaints of epigastric abdominal pain related to eating wings the night before. On labs, she was found to have a normal white blood cell count; however, on imaging, she was found to have signs of acute cholecystitis. On exam, the patient was tender in the epigastric area and it was recommended to proceed with cholecystectomy. All risks, benefits, and alternatives to surgery were discussed with the patient and questions answered. Consent was obtained. PROCEDURE IN DETAIL: The patient was identified in the preoperative area, taken back to the operating room, and placed on the operating table in supine position. After anesthesia was induced, the abdomen was prepped and draped in the usual sterile fashion and a timeout performed. All sites of skin incisions were infiltrated with local anesthetic prior to making an incision. A 12 mm incision was made above the umbilicus through which a Veress needle was inserted. The Veress needle position was confirmed using saline drop test and the abdomen insufflated to 15 mmHg. Once the abdomen was insufflated, the Veress needle was removed and a 12 mm Optiview trocar was placed through this incision. The abdomen was inspected and there was no underlying injury to any of the abdominal contents. Due to the patient's body habitus, longer robotic trocars were used. An 8 mm left upper quadrant robotic trocar was placed under direct visualization and two 8 mm robotic trocars were placed in the right mid and right lateral abdominal wall, all under direct visualization. The robot was then docked with a ProGrasp in arm #3,Caudiere in arm #2 and a monopolar hook in arm #1. A Ray-Andi was placed into the abdomen. The surgeon was then transferred to the console. The gallbladder was grasped and lifted cephalad. The gallbladder was very edematous, distended, and there was a large stone at the neck of the gallbladder. The cystic duct and artery were then carefully dissected and skeletonized. The critical view was obtained by dissecting the peritoneum at the lateral and medial aspects of the gallbladder near the neck of the gallbladder. Once the critical view was obtained and the cystic duct and artery were seen as the only two structures entering the gallbladder, the Weck locking clips were applied. Two clips were applied proximally on the cystic duct and 1 proximally on the cystic artery and 1 distally. The cystic artery was transected in between the clips using hook electrocautery. The remainder of the gallbladder was dissected off the liver bed using hook electrocautery. Once the entire gallbladder was dissected off the liver bed, the robot was undocked in the usual fashion and the surgeon scrubbed back in. The remainder of the procedure was performed laparoscopically. The gallbladder was grasped with a grasper and lifted cephalad, and the cystic duct was transected between the clips using an EndoShear. The gallbladder was placed into an EndoCatch bag and removed through the abdomen via the 12 mm port. The Ray-Andi in the abdomen was used to sponge up any edematous fluid. Hemostasis was carefully ensured. There was no bile leakage or bleeding from the liver bed. The clips were visualized and were intact. The Ray-Andi was removed from the abdomen. The 12 mm port fascia was closed with interrupted 0 Vicryl sutures. The remaining ports were removed under direct visualization and the abdomen fully desufflated. The skin incisions were closed with 4-0 Monocryl subcuticular stitches and skin glue. All skin incisions were once again infiltrated with local anesthetic. At the end of the case, all sponge, instrument, sharp counts were correct x 2. The patient was awoken from anesthesia, extubated, and taken to PACU in stable condition. JOB# [id number] JARAD/NICOLE KEITH
== END 2018-07-22 14:39 | disposition home or self-care (01) | DRG 418 ==
LOC: EDBD → ED 22:41 → 3A 07-21 06:22
PROVIDERS: ADMIT Internal Medicine; ATTEND Hospitalist
PROC: 0FT44ZZ Resection of Gallbladder, Percutaneous Endoscopic Approach (ICD-10-PCS; principal; 2018-07-21)
PROC: 8E0W4CZ Robotic Assisted Procedure of Trunk Region, Percutaneous Endoscopic Approach (ICD-10-PCS; 2018-07-21)
DX: K80.00 Calculus of gallbladder with acute cholecystitis without obstruction (principal); Z68.43 Body mass index [BMI] 50.0-59.9, adult; I10 Essential (primary) hypertension; I16.0 Hypertensive urgency; E66.01 Morbid (severe) obesity due to excess calories; Z98.51 Tubal ligation status; Z88.1 Allergy status to other antibiotic agents; Z79.899 Other long term (current) drug therapy
CPT/HCPCS: 36415; 71275; 74177; 76700; 80053; 81001; 83690; 84484; 84703; 85025; 85610; 88304; 93005; 93010; G0378; C9113; J0330; J1100; J1170; J1885; J1956; J2250; J2270; J2405; J2704; J2710; J3010; J7120; Q0162; Q9967

== ENCOUNTER 2020-05-07 10:05 | Emergency (ER) | payer SELFPAY ==
--- NOTE | 2020-05-07 12:25 | Emergency Department Report ---
ED General Adult HPI - General Chief complaint: Chest Pain Stated complaint: CHEST PAIN/HEAD PAIN Time Seen by Provider: 05/07/20 11:59 Source: patient Mode of arrival: Ambulatory Limitations: No Limitations - History of Present Illness Initial comments: Patient is a 35-year-old female presents emergency room with complaints of right-sided chest pain and pain under her right breast that radiates to her back that began a month ago. She states that she occasionally has pain when she takes a deep breath. She states that she also has occasional mild shortness of breath. Patient states last night she began to have a headache and lightheadedness that felt like a pressure. She states that she took Tylenol with relief of her headache. She has no headache currently. She denies any nausea, vomiting, diarrhea, fever, urinary symptoms, cough, leg swelling, vision changes, numbness, weakness. She denies any recent travel, recent surgery, hormone use, immobilization. Has a past medical history of hypertension. Allergy to amoxicillin. She states that she does occasionally smoke tobacco and hookah. She states her last menstrual cycle was April 14. She denies any family history of [place] or DVT/PE. Severity scale (0 -10): 0 - Related Data Previous Rx's Medication Instructions Recorded Last Taken Type hydroCHLOROthiazide [HCTZ] 25 mg PO QDAY #30 tablet 07/22/18 Unknown Rx oxyCODONE /ACETAMINOPHEN [Percocet 2 tab PO Q4H PRN #12 tablet 07/22/18 Unknown Rx 5/325 mg] Acetaminophen [Tylenol] 650 mg PO Q8HR PRN #20 capsule 05/07/20 Unknown Rx methOCARBAMOL [Robaxin TAB] 500 mg PO BID PRN #14 tab 05/07/20 Unknown Rx Allergies Allergy/AdvReac Type Severity Reaction Status Date / Time amoxicillin Allergy Hives Verified 07/20/18 22:44 ED Review of Systems ROS: Stated complaint: CHEST PAIN/HEAD PAIN Other details as noted in HPI Comment: All other systems reviewed and negative ED Past Medical Hx - Past Medical History Hx Hypertension: Yes Hx Heart Attack/AMI: No Hx Liver Disease: No Hx Renal Disease: No Hx Seizures: No Hx Asthma: No - Surgical History Additional Surgical History: , tubal ligation - Social History Smoking Status: Current Some Day Smoker Substance Use Type: Alcohol - Medications Home Medications: Home Medications Medication Instructions Recorded Confirmed Last Taken Type hydroCHLOROthiazide [HCTZ] 25 mg PO QDAY #30 tablet 07/22/18 Unknown Rx oxyCODONE /ACETAMINOPHEN [Percocet 2 tab PO Q4H PRN #12 tablet 07/22/18 Unknown Rx 5/325 mg] Acetaminophen [Tylenol] 650 mg PO Q8HR PRN #20 capsule 05/07/20 Unknown Rx methOCARBAMOL [Robaxin TAB] 500 mg PO BID PRN #14 tab 05/07/20 Unknown Rx ED Physical Exam - General Limitations: No Limitations General appearance: alert, in no apparent distress - Head Head exam: Present: atraumatic, normocephalic - Eye Eye exam: Present: normal appearance - ENT ENT exam: Present: mucous membranes moist - Respiratory Respiratory exam: Present: normal lung sounds bilaterally. Absent: respiratory distress, wheezes, rales, rhonchi, stridor, chest wall tenderness, accessory mu scle use, decreased breath sounds, prolonged expiratory - Cardiovascular Cardiovascular Exam: Present: regular rate, normal rhythm, normal heart sounds. Absent: systolic murmur, diastolic murmur, rubs, gallop - GI/Abdominal GI/Abdominal exam: Present: soft, normal bowel sounds. Absent: distended, tenderness, guarding, rebound, rigid - Neurological Exam Neurological exam: Present: alert, oriented X3, CN II-XII intact, normal gait. Absent: motor sensory deficit - Psychiatric Psychiatric exam: Present: normal affect, normal mood - Skin Skin exam: Present: warm, dry, intact ED Course Vital Signs 05/07/20 05/07/20 10:20 14:12 Temperature 98.9 F 98.6 F Pulse Rate 74 78 Respiratory 18 16 Rate Blood Pressure 150/91 143/89 [Right] O2 Sat by Pulse 98 98 Oximetry ED Medical Decision Making - Lab Data Result diagrams: 05/07/20 12:27 05/07/20 12:27 Lab Results 05/07/20 05/07/20 05/07/20 Range/Units 12:27 12:27 12:27 WBC 7.3 (4.5-11.0) K/mm3 RBC 4.85 (3.65-5.03) M/mm3 Hgb 13.7 (10.1-14.3) gm/dl Hct 41.5 (30.3-42.9) % MCV 86 (79-97) fl MCH 28 (28-32) pg MCHC 33 (30-34) % RDW 15.4 H (13.2-15.2) % Plt Count 285 (140-440) K/mm3 Lymph % (Auto) 36.6 H (13.4-35.0) % Schuyler % (Auto) 7.6 H (0.0-7.3) % Eos % (Auto) 0.2 (0.0-4.3) % Baso % (Auto) 0.6 (0.0-1.8) % Lymph # (Auto) 2.7 (1.2-5.4) K/mm3 Schuyler # (Auto) 0.6 (0.0-0.8) K/mm3 Eos # (Auto) 0.0 (0.0-0.4) K/mm3 Baso # (Auto) 0.0 (0.0-0.1) K/mm3 Seg Neutrophils % 55.0 (40.0-70.0) % Seg Neutrophils # 4.0 (1.8-7.7) K/mm3 D-Dimer 194.92 (0-234) ng/mlDDU Sodium 141 (137-145) mmol/L Potassium 4.0 (3.6-5.0) mmol/L Chloride 103.4 (98-107) mmol/L Carbon Dioxide 23 (22-30) mmol/L Anion Gap 19 mmol/L BUN 7 (7-17) mg/dL Creatinine 0.6 (0.6-1.2) mg/dL Estimated GFR > 60 ml/min BUN/Creatinine Ratio 12 % Glucose 93 (65-100) mg/dL Calcium 9.2 (8.4-10.2) mg/dL Total Bilirubin 0.30 (0.1-1.2) mg/dL AST 14 (5-40) units/L ALT 14 (7-56) units/L Alkaline Phosphatase 88 (35-129) units/L Troponin T < 0.010 (0.00-0.029) ng/mL Total Protein 8.4 H (6.3-8.2) g/dL Albumin 4.0 (3.9-5) g/dL Albumin/Globulin Ratio 0.9 % HCG, Qual (Negative) 05/07/20 05/07/20 Range/Units 12:27 15:13 WBC (4.5-11.0) K/mm3 RBC (3.65-5.03) M/mm3 Hgb (10.1-14.3) gm/dl Hct (30.3-42.9) % MCV (79-97) fl MCH (28-32) pg MCHC (30-34) % RDW (13.2-15.2) % Plt Count (140-440) K/mm3 Lymph % (Auto) (13.4-35.0) % Schuyler % (Auto) (0.0-7.3) % Eos % (Auto) (0.0-4.3) % Baso % (Auto) (0.0-1.8) % Lymph # (Auto) (1.2-5.4) K/mm3 Schuyler # (Auto) (0.0-0.8) K/mm3 Eos # (Auto) (0.0-0.4) K/mm3 Baso # (Auto) (0.0-0.1) K/mm3 Seg Neutrophils % (40.0-70.0) % Seg Neutrophils # (1.8-7.7) K/mm3 D-Dimer (0-234) ng/mlDDU Sodium (137-145) mmol/L Potassium (3.6-5.0) mmol/L Chloride (98-107) mmol/L Carbon Dioxide (22-30) mmol/L Anion Gap mmol/L BUN (7-17) mg/dL Creatinine (0.6-1.2) mg/dL Estimated GFR ml/min BUN/Creatinine Ratio % Glucose (65-100) mg/dL Calcium (8.4-10.2) mg/dL Total Bilirubin (0.1-1.2) mg/dL AST (5-40) units/L ALT (7-56) units/L Alkaline Phosphatase (35-129) units/L Troponin T < 0.010 (0.00-0.029) ng/mL Total Protein (6.3-8.2) g/dL Albumin (3.9-5) g/dL Albumin/Globulin Ratio % HCG, Qual Negative (Negative) Vital Signs 05/07/20 05/07/20 10:20 14:12 Temperature 98.9 F 98.6 F Pulse Rate 74 78 Respiratory 18 16 Rate Blood Pressure 150/91 143/89 [Right] O2 Sat by Pulse 98 98 Oximetry - EKG Data EKG shows normal: intervals Rate: normal - EKG Data 05/07/20 18:40 Patient with ectopic atrial rhythm No STEMI - Radiology Data Radiology results: report reviewed Ordering Physician: ERIN FAUST Date of Service: 05/07/20 Procedure(s): XR chest routine 2V Accession Number(s): [id number] cc: ERIN FAUST Fluoro Time In Minutes: CHEST 2 VIEWS INDICATION: Intermittent chest pain for one month. COMPARISON: 09/24/2017 FINDINGS: Support devices: None. Heart: Within normal limits. Lungs/pleura: No acute air space or interstitial disease. No pneumothorax. Additional findings: None. IMPRESSION: No acute findings. Signer Name: Negro Car Jr, MD Signed: 05/07/2020 1:32 PM Workstation Name: [id number] Transcribed By: TTR Dictated By: NEGRO CAR JR, MD Electronically Authenticated By: NEGRO CAR JR, MD Signed Date/Time: 05/07/201331 DD/ 30 TD/TT: - Medical Decision Making solomon is a 35-year-old female presents emergency room with complaints of right- sided chest pain and pain under her right breast that radiates to her back that began a month ago. She states that she occasionally has pain when she takes a deep breath. She states that she also has occasional mild shortness of breath. Patient states last night she began to have a headache and lightheadedness that felt like a pressure. She states that she took Tylenol with relief of her headache. She has no headache currently. She denies any nausea, vomiting, diarrhea, fever, urinary symptoms, cough, leg swelling, vision changes, numbness, weakness. She denies any recent travel, recent surgery, hormone use, immobilization. Has a past medical history of hypertension. Allergy to amoxicillin. She states that she does occasionally smoke tobacco and hookah. She states her last menstrual cycle was April 14. She denies any family history of [place] or DVT/PE. VSS. No abnormality on physical examination as documented in chart. No fever, no tachycardia, no hypoxia. Labs are normal. Troponin is negative x2. D-dimer is negative. Patient is PERC criteria negative. EKG with ectopic atrial rhythm, no STEMI. This is been ongoing for a month. Heart score is 2, DEDE score 0, low risk for cardiac event. Do not bello pect ACS. Symptoms likely related to pleuritis versus costochondritis. Patient given prescription for Robaxin and Tylenol. Patient will be referred to primary care doctor and government sales manager. Advised patient Please take medication as prescribed as needed. Do not drive or operate machinery while taking muscle relaxer Robaxin. May use ice pack, heating pad, rest, epsom salt bath. Follow- up with your primary care doctor. Follow-up with a government sales manager. Return to emergency room for any new or worsening symptoms. - Differential Diagnosis Costochondritis, pleuritis, anemia, anxiety, GERD, ACS, PE, strain,PNA Critical care attestation.: If time is entered above; I have spent that time in minutes in the direct care of this critically ill patient, excluding procedure time. ED Disposition Clinical Impression: Chest pain Qualifiers: Chest pain type: unspecified Qualified Code(s): R07.9 - Chest pain, unspecified Back pain Qualifiers: Back pain location: thoracic back pain Chronicity: acute Back pain laterality: unspecified Qualified Code(s): M54.6 - Pain in thoracic spine Headache Qualifiers: Headache type: unspecified Headache chronicity pattern: acute headache Intractability: not intractable Qualified Code(s): R51.9 - Headache, unspecified Disposition: DC-01 TO HOME OR SELFCARE Is pt being admited?: No Does the pt Need Aspirin: No Condition: Stable Instructions: Nonspecific Chest Pain, Adult, Chest Pain (ED) Additional Instructions: Please take medication as prescribed as needed. Do not drive or operate machinery while taking muscle relaxer Robaxin. May use ice pack, heating pad, rest, epsom salt bath. Follow-up with your primary care doctor. Follow-up with a government sales manager. Return to emergency room for any new or worsening symptoms. Prescriptions: methOCARBAMOL [Robaxin TAB] 500 mg PO BID PRN #14 tab PRN Reason: pain Acetaminophen [Tylenol] 650 mg PO Q8HR PRN #20 capsule PRN Reason: pain Referrals: CORBY CLARK [Other] - 2-3 Days STEVIE MARINO MD [Staff Physician] - 2-3 Days Time of Disposition: 15:55 Print Language: CANADIAN Heart Score - HEART Score History: Slightly suspicious EKG: Normal Age: < 45 Risk factors: > 3 risk factors or hx of atherosclerotic disease Troponin: < normal limit HEART Score: 2
[2020-05-07 12:49] LABS: Basophils % (Auto) 0.6 % (0.0-1.8); Eosinophils % (Auto) 0.2 % (0.0-4.3); Hematocrit 41.5 % (30.3-42.9); Hemoglobin 13.7 gm/dl (10.1-14.3); Lymphocytes # (Auto) 2.7 K/mm3 (1.2-5.4); Lymphocytes % (Auto) 36.6 % (13.4-35.0); Mean Corpuscular HGB Conc 33 % (30-34); Mean Corpuscular Volume 86 fl (79-97); Monocytes # (Auto) 0.6 K/mm3 (0.0-0.8); Monocytes % (Auto) 7.6 % (0.0-7.3); Platelet Count 285 K/mm3 (140-440); Red Blood Count 4.85 M/mm3 (3.65-5.03); Red Cell Distribution Width 15.4 % (13.2-15.2)
[2020-05-07 13:30] LABS: Alanine Aminotransferase 14 units/L (7-56); Blood Urea Nitrogen 7 mg/dL (7-17); Calcium 9.2 mg/dL (8.4-10.2); Hemolysis Index 3
[2020-05-07 13:32] LABS: BUN/Creatinine Ratio 12
--- NOTE | 2020-05-07 13:36 | XRay Report ---
CHEST 2 VIEWS INDICATION: Intermittent chest pain for one month. COMPARISON: 09/24/2017 FINDINGS: Support devices: None. Heart: Within normal limits. Lungs/pleura: No acute air space or interstitial disease. No pneumothorax. Additional findings: None. IMPRESSION: No acute findings. Signer Name: Negro Car Jr, MD Signed: 05/07/2020 1:32 PM Workstation Name: [id number]
[2020-05-07 14:12] VITALS: BP 143/89
== END 2020-05-07 16:17 | disposition home or self-care (01) ==
LOC: ED 10:05
DX: R07.89 Other chest pain (principal); R51.9 Headache, unspecified; M54.5 Low back pain; F17.200 Nicotine dependence, unspecified, uncomplicated; Z79.899 Other long term (current) drug therapy; Z88.1 Allergy status to other antibiotic agents
CPT/HCPCS: 36415; 71046; 80053; 84484; 84703; 85025; 85379; 93005